=== PATIENT | male | born 1985 | race Caucasian/White ===

== ENCOUNTER 2019-07-09 13:44 | Emergency (ER) | payer SELFPAY ==
[~2019-07-09] VITALS: Ht 185.4 cm; Wt 86.2 kg
[2019-07-09 14:23] VITALS: BP 109/71
[2019-07-09 14:58] LABS: Hepatitis B Surface Antibody Positive
[2019-07-09] MEDS ORDERED: TETANUS-DIPTH-ACEL PERTUSSIS 0.5ML SYRG IM ONE (15:00)
[2019-07-09 15:13] LABS: Hepatitis B Surface Antigen Negative (Negative)
== END 2019-07-09 15:16 | disposition home or self-care (01) ==
LOC: ER 13:44
DX: S61.002A Unspecified open wound of left thumb without damage to nail, initial encounter (principal); W27.3XXA Contact with needle (sewing), initial encounter; Y93.89 Activity, other specified; Y99.8 Other external cause status; Y92.89 Other specified places as the place of occurrence of the external cause
CPT/HCPCS: 36415; 86703; 86706; 86803; 87340; 90471; 90715